=== PATIENT | male | born 1970 | race Caucasian/White ===

== ENCOUNTER 2018-09-04 16:55 | Emergency (ER) | payer SELFPAY ==
[~2018-09-04] VITALS: Ht 177.8 cm; Wt 88.5 kg
[2018-09-04] MEDS ORDERED: ETOMIDATE IV SOLN 20 MG/10 ML VIAL IV ONE (17:15)
[2018-09-04] MEDS ORDERED: NS IV 1000 ML 1,000 ML ONE (17:40)
[2018-09-04 17:49] VITALS: BP 168/54
--- NOTE | 2018-09-04 17:56 | Diagnostic Imaging Report ---
INDICATION: Pain. FINDINGS: There is dislocation of the left hip arthroplasty. Femoral component appears to be displaced superiorly. There is no fracture. Soft tissues are unremarkable. IMPRESSION: Dislocation of the left hip arthroplasty. Dictated by: Dictated on workstation # [id number]
--- NOTE | 2018-09-04 17:58 | ED Hip Pain/Injury ---
General Chief Complaint: Hip/Pelvic Problems Stated Complaint: LT HIP DISLOCATION Nursing Triage Note: PT HAS A HX OF BILATERAL HIP REPLACEMENT AND WAS PAINTING THIS AFTERNOON AND HIS LEFT HIPCAME OUT OF PLACE. PT USED METH THIS AM AND MARIJUANA 2 DAYS AGO. Source: patient, family Exam Limitations: no limitations History of Present Illness Date Seen by Provider: Sep 04, 2018 Time Seen by Provider: 16:20 Initial Comments Patient is a 48 year old male with h/o B hip prosthesis performed in [facility] approximately 10 years ago who presents with as suspected L hip dislocation while at work/ patient states he was standing and twisted his left hip sideways and felt popping sensation. He is unable to weight-bear and has had a shortened rotated left leg since the incident occurred 1 hour prior to ED arrival. Pulses and sensation are intact. Denies prior hip dislocation. Does not take any medications on a daily basis, patient smokes tobacco, marijuana and uses marijuana recreationally. He has not had any food in the past 8 hours, last drink water just prior to arrival. Additional history is obtained from the patient's girlfriend. No other symptoms or complaints. Timing/Duration: just prior to arrival Severity: moderate Location: hip (L) Method of Injury: twisted, other Modifying Factors: Improves With Immobilization Associated Symptoms: denies symptoms Allergies and Home Medications Allergies Coded Allergies: No Known Drug Allergies (Unverified , 09/04/18) Patient Home Medication List Home Medication List Reviewed: Yes Review of Systems Constitutional: no symptoms reported Musculoskeletal: see HPI Past Xjxyhlz-[id number]-Rxtroz Hx Past Med/Social Hx: Reviewed Nursing Past Med/Soc Hx Patient Social History Alcohol Use: Denies Use Recreational Drug Use: Yes Drug of Choice: METH AND MARIJUANA Recent Foreign Travel: No Contact w/Someone Who Travel: No Recent Infectious Disease Expo: No Recent Hopitalizations: No Physical Abuse: No Sexual Abuse: No Mistreated: No Fear: No Seasonal Allergies Seasonal Allergies: No Past Medical History Surgeries: Yes Orthopedic Respiratory: No Cardiac: No Neurological: No Genitourinary: No Gastrointestinal: No Musculoskeletal: No Endocrine: No HEENT: No Cancer: No Psychosocial: No Integumentary: No Blood Disorders: No Physical Exam Vital Signs Vital Signs - First Documented 09/04/18 09/04/18 17:11 17:39 Temp 97.3 Pulse 92 Resp 18 B/P (MAP) 138/97 (111) Pulse Ox 99 O2 Delivery Room Air O2 Flow Rate 4.00 Capillary Refill : Less Than 3 Seconds Height, Weight, BMI Height: 5'10.00" Weight: 195lbs. oz. 88.727743if; BMI Method:Stated General Appearance: Anxious, Moderate Distress HEENT: PERRL/EOMI, TMs Normal, Other Neck: Full Range of Motion, Normal Inspection Cardiovascular: Regular Rate, Rhythm, No Edema Respiratory: Lungs Clear Extremity: Normal Capillary Refill (left lower extremity) Neurologic/Psychiatric: Alert, No Motor/Sensory Deficits (left lower extremity) Procedures/Interventions Procedure: MODERATE SADATION WITH REDUCTION OF LEFT HIP DISLOCATION. Splinting and Joint Reduction : Pre-Proc Neuro Vasc Exam: normal Post-Proc Neuro Vasc Exam: normal Joint Reduction Site: hip (L) Reduction Attempts: 1 Pre-Procedure NV Exam: Yes post joint reduction film: joint not reduced Progress Patient given etomidate for sedation with adequate relaxation. Unable to reduce hip. No orthopedic coverage at [facility]. Dr. Henderson at [facility] accepts patient in will designate which hospital/ER to send the patient by ambulance. Patient stable at time of this dictation Henrique wrap: No Progress/Results/Core Measures Results/Orders My Orders Orders - AMY BAILON DO Etomidate Injection (Amidate Injection) (09/04/18 17:15) Hip (Single View) Left (09/04/18 17:10) Ns Iv 1000 Ml (Sodium Chloride 0.9%) (09/04/18 17:40) Vital Signs/I&O 09/04/18 09/04/18 09/04/18 09/04/18 17:11 17:39 17:42 17:49 Temp 97.3 Pulse 92 86 68 Resp 18 18 18 18 B/P (MAP) 138/97 (111) 136/83 168/54 (92) Pulse Ox 99 100 96 O2 Delivery Room Air Nasal Cannula Nasal Cannula Nasal Cannula O2 Flow Rate 4.00 4.00 Blood Pressure Mean: 92 Departure Impression Primary Impression: Hip dislocation, left Disposition: XFER SHT-TRM HOSP Condition: Stable Admissions Decision to Admit/Date: Sep 04, 2018 Transfer Transfer Progress Notes Dr. Henderson excepts to [facility] emergency Department Transfer Time: 18:09 Method of Transfer: EMS Departure-Patient Inst. Referrals: NO,LOCAL PHYSICIAN (PCP) Primary Care Physician AMY BAILON DO Sep 04, 2018 17:58
[2018-09-04 18:24] VITALS: BP 150/89
== END 2018-09-04 18:59 | disposition short-term general hospital (02) ==
LOC: ER FS 17:01
DX: S73.005A Unspecified dislocation of left hip, initial encounter (principal); F12.10 Cannabis abuse, uncomplicated; F15.10 Other stimulant abuse, uncomplicated; F17.200 Nicotine dependence, unspecified, uncomplicated; X50.1XXA Overexertion from prolonged static or awkward postures, initial encounter
CPT/HCPCS: 73501; 93041; 99291